=== PATIENT | female | born 1995 | race African-American/Black ===

== ENCOUNTER 2024-07-24 21:16 | Emergency (ER) | payer OTHER ==
[2024-07-24 21:21] VITALS: TEMP 98.1; BMI 35.4
[2024-07-24 22:30] LABS: BASO % 0.7 % (0-2.0); EOS % 0.9 % (0-4.5); HEMATOCRIT 30.5 % (32.4-45.2); LYMPH % 45.1 % (8-40); MCHC 32.9 g/dl (32.0-36.0); MEAN PLT VOLUME 7.6 fl (7.5-11.1); MONO % 5.4 % (3.8-10.2); NEUT % 47.9 % (42.8-82.8); PLATELET COUNT 290 10^3/uL (134-434); RBC 3.58 M/mm3 (3.60-5.2); WHITE BLOOD COUNT 5.3 K/mm3 (4.0-10.0)
[2024-07-24 22:43] LABS: POTASSIUM 4.4 mmol/L (3.5-5.1)
[2024-07-24 22:45] LABS: CALCIUM 9.2 mg/dL (8.5-10.1)
[2024-07-24 22:46] LABS: ALBUMIN 3.5 g/dl (3.4-5.0); BLOOD UREA NITROGEN 12.4 mg/dL (7-18)
[2024-07-24 22:49] LABS: CREATININE 0.7 mg/dL (0.55-1.3)
[2024-07-24 22:50] LABS: BILIRUBIN,TOTAL 0.6 mg/dL (0.2-1)
[2024-07-24 22:51] LABS: TOT PROT 7.3 g/dl (6.4-8.2)
[2024-07-24 23:35] VITALS: BP 144/83; PULSE 60; RESP 17
== END 2024-07-24 23:35 | disposition home or self-care (01) ==
LOC: JER 21:16
DX: R00.2 Palpitations (principal); R07.89 Other chest pain
CPT/HCPCS: 36415; 71046-TC-FY; 80053; 82550; 84443; 84484; 84703; 85025; 93005; 93010; 99285-25